=== PATIENT | female | born 1990 | race Caucasian/White ===

== ENCOUNTER → 2020-05-12 11:39 | Outpatient (CLI) | payer OTHER, MEDICAID, SELFPAY ==
[2020-05-12 14:47] LABS: Urine N gonorrhoeae NOT DETECTED
[2020-05-12 14:49] LABS: Urine Chlamydia DETECTED
== END ==
PROVIDERS: PCP Obstetrics & Gynecology; Visit Provider Obstetrics & Gynecology
DX: Z11.3 Encounter for screening for infections with a predominantly sexual mode of transmission (principal); Z3A.08 8 weeks gestation of pregnancy
CPT/HCPCS: 87491; 87591

== ENCOUNTER → 2020-06-09 09:04 | Outpatient (CLI) | payer OTHER, MEDICAID, SELFPAY ==
[2020-06-09 10:19] LABS: Add Manual Diff / Slide Review NO; Basophils Absolute Auto 0 /uL (0-100); Basophils Percent Auto 0.3 % (0-2); Eosinophils Absolute Auto 200 /uL (0-450); Eosinophils Percent Auto 1.8 % (2-4); Hematocrit 34.8 % (36-46); Hemoglobin 11.9 g/dL (12.0-16.0); Lymphocytes Absolute Auto 2000 /uL (1100-4500); Lymphocytes Percent Auto 18.8 % (25-40); Mean Corpuscular HGB Conc 34.2 % (30-36); Mean Corpuscular Hemoglobin 30.3 PG (26-34); Mean Corpuscular Volume 88.7 fL (80-100); Monocytes Absolute Auto 800 /uL (0-900); Neutrophils Absolute Auto 7500 /uL (1500-7000); Neutrophils Percent Auto 71.1 % (50-75); Platelet Count 244 X10^3/uL (150-400); Red Blood Cell Count 3.92 X10^6/uL (4.0-5.2); Red Cell Distribution Width 13.2 % (11.6-14.8); White Blood Cell Count 10.6 X10^3/uL (4.5-11.0)
[2020-06-09 11:37] LABS: Hepatitis B Surface Antigen NEGATIVE s/c (NEGATIVE); Rubella Antibody IgG 29.6 IU/mL (>15)
[2020-06-09 11:56] LABS: HIV 1 & 2 Ab/Ag 4th Gen Combo NEGATIVE (NEGATIVE); Hep C Virus Ab w/Reflex Quant NEGATIVE s/c (NEGATIVE)
[2020-06-10 04:36] LABS: RPR Screen Non Reactive (Non Reactive)
[2020-06-10 08:09] LABS: Varicella IgG Antibody 1510 index (Immune >165)
== END ==
PROVIDERS: PCP Obstetrics & Gynecology; Referring Provider Obstetrics & Gynecology; Visit Provider Obstetrics & Gynecology
DX: Z34.81 Encounter for supervision of other normal pregnancy, first trimester (principal)
CPT/HCPCS: 36415; 80055; 86787; 86803; 86850; 86900; 86901; 87389

== ENCOUNTER → 2020-08-04 08:16 | Outpatient (CLI) | payer OTHER, MEDICAID, SELFPAY ==
[2020-08-07 11:12] LABS: Chlamydia trachomatis Negative (Negative); Mycoplasma genitalium Negative (Negative); Neisseria gonorrhoeae Negative (Negative)
== END ==
PROVIDERS: PCP Nurse Practitioner Family; Visit Provider Obstetrics & Gynecology
DX: Z34.82 Encounter for supervision of other normal pregnancy, second trimester (principal); Z11.3 Encounter for screening for infections with a predominantly sexual mode of transmission; Z3A.20 20 weeks gestation of pregnancy
CPT/HCPCS: 87491; 87563; 87591; 87798

== ENCOUNTER → 2020-11-09 16:06 | Outpatient (ROUT) | payer OTHER, MEDICAID, SELFPAY ==
[2020-11-09 16:22] LABS: Appearance Urine UA CLOUDY; Bilirubin Urine UA NEGATIVE (NEGATIVE); Color Urine UA YELLOW; Glucose Urine UA NEGATIVE (Negative); Ketones Urine UA NEGATIVE (NEGATIVE); Leukocyte Esterase Urine UA 2+ (NEGATIVE); Nitrite Urine UA NEGATIVE (Negative); Occult Blood Urine UA 3+ (Negative); Protein Urine UA TRACE (Negative); Urobilinogen Urine UA 0.2 E.U./dL (0.2)
[2020-11-09 16:31] LABS: Amorphous Sediment Urine 1+; Bacteria Urine Few (2-10); Mucus Urine 1+ (Negative); RBC Urine 5-10/HPF (0-5/HPF); Squamous Epithelial Cell Urine 5-10 /HPF (0-5/HPF); WBC Urine 30-100/HPF (0-5/HPF)
== END ==
PROVIDERS: PCP Nurse Practitioner Family; Visit Provider Obstetrics & Gynecology
DX: Z34.81 Encounter for supervision of other normal pregnancy, first trimester (principal)
CPT/HCPCS: 81003; 81015; 87086

== ENCOUNTER → 2020-11-26 08:07 | Outpatient (CLI) | payer OTHER, MEDICAID, SELFPAY ==
[2020-11-27 10:01] LABS: Strep Grp B PCR NEG for Grp B Strep
== END ==
PROVIDERS: PCP Nurse Practitioner Family; Visit Provider Obstetrics & Gynecology
DX: Z34.83 Encounter for supervision of other normal pregnancy, third trimester (principal); Z3A.36 36 weeks gestation of pregnancy
CPT/HCPCS: 87653

== ENCOUNTER 2020-12-06 10:59 | Observation (INO) | payer OTHER, MEDICAID, SELFPAY ==
--- NOTE | 2020-12-06 11:34 | P.TNLD_ITS ---
Visit Information Visit Information Date of evaluation: 12/06/20 Primary OB Provider: Osiris Stevens Reason for Evaluation: Yes rule out labor Comments/Additional reasons for admission: This patient is a 30yo @38+1 presenting for evaluation for labor and rupture. Patient reports that since yesterday, she has had an increased amount of clear, mucousy discharge, though not soaking through her underpants or requiring a pad. She has had intermittent contractions, but is most bothered by her sciatica pain. She reports good movement, denies vaginal bleeding, and has increasing urinary frequency. She does report suprapubic cramping that she describes as pressure, different from contractions. Vital Signs Vital Signs: 113/71, HR 71, afebrile [facility] Medical History Adopted Anxiety Fracture of finger of left hand HPV (human papilloma virus) infection Surgical History Anesthesia History of appendectomy History of salpingoophorectomy [place] teeth extracted Social History marital status: unmarried,living together number of children: 1 household members: significant other lives independently: No caregiver/support person: No housing: apartment pets and animals: Yes (Dog - emotional support dog, recently adopted from penitentiary. ) education level: high school (finished [employer] through 11th grade.) occupational status: employed (Works at restaurant.) current occupational exposures/hazards: No special braulio needs: No Smoking Status: Never smoker second hand exposure: No alcohol intake: former (socially, 1-2x week) substance use type: marijuana (Rarely, for headaches, maybe once a montth, not since .) Type(s) of exercise: walking frequency: daily Review of Systems Constitutional Constitutional: Reports as per HPI Gastrointestinal Gastrointestinal: Reports as per HPI Genitourinary Genitourinary: Reports as per HPI Exam Const General: cooperative, healthy appearing and comfortable GI Palpation: soft and No tender External Female Exam: normal external appearance Manual OB Exam: dilated 2, effaced 50% and station high Presentation: vertex Estimated Weight (lbs): 7 Amniotic Fluid: no fluid and other (amnisure negative) Evaluation Evaluation Baseline heart rate: 135 Variability: Moderate (11-25) monitor accelerations: Present Monitor Decelerations: Absent Uterine Contraction Intensity: Mild Category of Tracing: Reactive Status: Category l Cervical dilation (cm): 2 Cervical effacement (%): 50 station: -3 Non-invasive Membranes Rupture Test: negative Comments: No fluid on garments or bedding, scant mucous on glove. Bedside KRISTIAN 10.1cm, MVP 3.3cm. Copious movement during exam. Diagnosis, Plan/Disposition Plan/Disposition Plan: This patient presents for evaluation for labor and rupture. Patient has mucously fluid with negative amnisure and normal KRISTIAN, no ongoing loss of fluid, dry pad and bedding, does not appear ruptured. Patient has not made cervical change since exam in clinic three days ago, has symptoms most consistent with UTI and will leave a UA. Plans to stay off mondamin overnight, precautions for return discussed. OB Disposition: home
[2020-12-06 12:57] LABS: RBC Urine None Seen (0-5/HPF)
[2020-12-06 12:59] LABS: Appearance Urine UA SL CLOUDY; Bilirubin Urine UA NEGATIVE (NEGATIVE); Color Urine UA YELLOW; Glucose Urine UA NEGATIVE (Negative); Ketones Urine UA NEGATIVE (NEGATIVE); Leukocyte Esterase Urine UA 1+ (NEGATIVE); Nitrite Urine UA NEGATIVE (Negative); Occult Blood Urine UA 1+ (Negative); Protein Urine UA NEGATIVE (Negative); Specific Gravity Urine UA 1.015 (1.000-1.035); Urobilinogen Urine UA 0.2 E.U./dL (0.2)
[2020-12-06 13:18] LABS: Bacteria Urine Moderate (10-30); Culture Indicated Urine Specimen Cultured; Squamous Epithelial Cell Urine 1-5 /HPF (0-5/HPF); WBC Urine 1-5/HPF (0-5/HPF); pH Urine UA 6.5 (4.5-8.0)
== END 2020-12-06 13:58 | disposition home or self-care (01) ==
PROVIDERS: Admitting Provider Obstetrics & Gynecology; PCP Nurse Practitioner Family; Referring Provider Obstetrics & Gynecology; Visit Provider Obstetrics & Gynecology
DX: O26.893 Other specified pregnancy related conditions, third trimester (principal); N89.8 Other specified noninflammatory disorders of vagina; M54.40 Lumbago with sciatica, unspecified side; Z3A.38 38 weeks gestation of pregnancy
CPT/HCPCS: 59025; 59050; 76815; 81001; 84112; 87086; G0378; G0379

== ENCOUNTER 2020-12-08 09:47 | Inpatient (IN) | payer OTHER, MEDICAID, SELFPAY ==
[2020-12-08 12:09] LABS: Add Manual Diff / Slide Review NO; Basophils Absolute Auto 0 /uL (0-100); Basophils Percent Auto 0.5 % (0-2); Eosinophils Absolute Auto 100 /uL (0-450); Eosinophils Percent Auto 1.1 % (2-4); Hematocrit 31.5 % (36-46); Hemoglobin 10.2 g/dL (12.0-16.0); Lymphocytes Absolute Auto 1900 /uL (1100-4500); Lymphocytes Percent Auto 20.9 % (25-40); Mean Corpuscular HGB Conc 32.3 % (30-36); Mean Corpuscular Hemoglobin 25.6 PG (26-34); Mean Corpuscular Volume 79.3 fL (80-100); Monocytes Absolute Auto 900 /uL (0-900); Monocytes Percent Auto 9.7 % (3-14); Neutrophils Absolute Auto 6000 /uL (1500-7000); Neutrophils Percent Auto 67.8 % (50-75); Platelet Count 194 X10^3/uL (150-400); Red Blood Cell Count 3.97 X10^6/uL (4.0-5.2); Red Cell Distribution Width 15.6 % (11.6-14.8); White Blood Cell Count 8.9 X10^3/uL (4.5-11.0)
--- NOTE | 2020-12-08 12:37 | PM.OBHP.1 ---
OB HPI Date/Time Date of admission: 12/08/20 Date Patient Seen: 12/08/20 Time Patient Seen: 09:15 History of Present Condition Chief complaint: NST : 2 Para: 1 Estimated Date of Delivery: 12/28/20 Estimated Gestational Age (weeks): 38 Narrative: Nazia Morgan is a 30 year old @38+3 presenting after SROM for clear fluid at 7:30 a.m.. The patient reports persistent trickle, though no massive leak. She denies vaginal bleeding, reports good movement, and reports rare contractions. An AmniSure was positive on admission. The patient has had an uncomplicated , has a history of uncomplicated vaginal delivery. The patient had a third-degree tear with her prior delivery in 2010, but no other obstetrical complications. She was treated for chlamydia at the beginning of the , is from the father the baby. She has no contributory medical, surgical, family, or other social history. Indications Indication for induction OB: other (SROM) History of Present care: good care Dating criteria: LMP confirmed by 1st trimester US Ultrasounds: normal 1st trimester US and abnormal US findings ( renal pyelectasis that resolved on follow-up, otherwise normal ultrasounds) Obstetrical complications: none Medical complications: none Preadmission Labs Blood type: O (+) positive -: Antibody screen: negative, GBS status: negative, HBsAG: negative, HIV: negative and RPR/VDLR: negative -: Chlamydia screen: detected (treated, negative JOVITA) and Gonorrhea screen: not detected -: Rubella: immune and Varicella: immune PAP: Normal Cell-free DNA: normal 1 hr GTT: 84 Narrative: Third-trimester labs performed through [employer], see activity log scans Prior (ies) History: G1: 02/22/11, 39+4, 7-8#, , F Evaluation Evaluation Baseline heart rate: 140 Variability: Moderate (11-25) monitor accelerations: Present Monitor Decelerations: Absent Contraction Frequency (minutes): 25 Uterine Contraction Intensity: Mild Category of Tracing: Reactive Status: Category l Cervical dilation (cm): 3 Cervical effacement (%): 50 station: -2 Laboratory results: Laboratory Tests 12/08/20 11:45 WBC 8.9 RBC 3.97 L Hgb 10.2 L Hct 31.5 L MCV 79.3 L MCH 25.6 L MCHC 32.3 RDW 15.6 H Plt Count 194 Neut % (Auto) 67.8 Lymph % (Auto) 20.9 L [place] % (Auto) 9.7 Eos % (Auto) 1.1 L Baso % (Auto) 0.5 Neut # (Auto) 6000 Lymph # (Auto) 1900 [place] # (Auto) 900 Eos # (Auto) 100 Baso # (Auto) 0 Non-invasive Membranes Rupture Test: positive [facility] Medical History Adopted Anxiety Fracture of finger of left hand HPV (human papilloma virus) infection Surgical History Anesthesia History of appendectomy History of salpingoophorectomy [place] teeth extracted Social History marital status: unmarried,living together number of children: 1 household members: significant other lives independently: No caregiver/support person: No housing: apartment pets and animals: Yes (Dog - emotional support dog, recently adopted from senior care. ) education level: high school (finished long term through 11th grade.) occupational status: employed (Works at restaurant.) current occupational exposures/hazards: No special braulio needs: No Smoking Status: Never smoker second hand exposure: No alcohol intake: former (socially, 1-2x week) substance use type: marijuana (Rarely, for headaches, maybe once a montth, not since .) Type(s) of exercise: walking frequency: daily Meds Home Medications and Allergies Home Medications Medication Instructions Recorded Confirmed Type prenat.vits,ophelia,pgq-pghg-uaups 1 tab PO DAILY 05/11/20 09/29/20 History ondansetron 4 mg disintegrating 4 mg PO Q8H PRN #20 tab 05/12/20 09/29/20 Rx tablet cefdinir 300 mg capsule 300 mg PO BID #14 cap 12/06/20 12/06/20 Rx Allergies Allergy/AdvReac Type Severity Reaction Status Date / Time hydromorphone Allergy Mild Rash Verified 12/08/20 10:28 milk AdvReac Powdered Verified 06/09/20 08:20 milk products: upset stomach, moderate diarrhea Review of Systems Constitutional Constitutional: Reports system reviewed and no additional complaints, except as documented Cardiovascular Cardiovascular: Reports system reviewed and no additional complaints, except as documented Respiratory Respiratory: Reports system reviewed and no additional complaints, except as documented Gastrointestinal Gastrointestinal: Reports as per HPI Genitourinary Genitourinary: Reports as per HPI Neurologic Neurologic: Reports system reviewed and no additional complaints, except as documented Exam Vital Signs (past 8 hours): 118/78, HR 80 Const General: cooperative, healthy appearing and comfortable GI Palpation: soft and No tender External Female Exam: normal external appearance Presentation: vertex Estimated Weight (lbs): 7 Amniotic Fluid: clear Objective Labs Result Diagrams: 12/08/20 11:45 Labs: Laboratory Results - last 24 hr 12/08/20 11:45 WBC 8.9 RBC 3.97 L Hgb 10.2 L Hct 31.5 L MCV 79.3 L MCH 25.6 L MCHC 32.3 RDW 15.6 H Plt Count 194 Neut % (Auto) 67.8 Lymph % (Auto) 20.9 L [place] % (Auto) 9.7 Eos % (Auto) 1.1 L Baso % (Auto) 0.5 Neut # (Auto) 6000 Lymph # (Auto) 1900 [place] # (Auto) 900 Eos # (Auto) 100 Baso # (Auto) 0 Assessment and Plan Assessment and Plan Assessment and Plan narrative: This patient is admitted with PROM, and does not appear to be in labor. The patient's GBS negative, and we discussed a few hours of expectant management, with Pitocin if she does not have more contractions. Category 1 tracing. Admit per usual protocol. Negative COVID test 2 days ago, did not require repeat. Anticipate vaginal delivery.
[2020-12-08] MEDS: LACTATED RINGERS 1,000 ML 100 ML IV (13:04)
[2020-12-08] MEDS: OXYTOCIN PREMIX 30 UNIT/500 ML PLAST..BAG IV (13:04)
--- NOTE | 2020-12-08 14:43 | PM.OBPNLAB ---
Date/Time Date Patient Seen: 12/08/20 Time Patient Seen: 14:43 Pelvic Exam Dilation (cm): 3 Effacement (%): 70 station: -2 Amniotic membrane status: Leaking (scant, clear) Comments: Attempted AROM of forebag. Patient poorly tolerant of cervical exams, unable to tolerate. Contractions Contractions on admission: irregular Pitocin rate (mU/min): 8 Contraction frequency (min): 4 Contraction intensity: Moderate Status status: Category l Heart Rate Baseline: 145 Monitor Accelerations: Present Monitor Decelerations: Absent Monitor Variability: Moderate Assessment and Plan Assessment: induction ongoing Plan: continuous present management Comments: Continue pitocin induction for PROM.
--- NOTE | 2020-12-08 17:19 | PM.OBPNLAB ---
Date/Time Date Patient Seen: 12/08/20 Time Patient Seen: 17:19 Pain Control Pain control: tolerating well Comments: symptomatic contractions q2-3 Pelvic Exam Dilation (cm): 4 Effacement (%): 70 station: -2 Amniotic membrane status: Leaking (scant, clear) Comments: AROM for copious clear fluid Contractions Pitocin rate (mU/min): 10 Contraction frequency (min): 3 Contraction pattern: Regular Contraction intensity: Moderate Status status: Category l Heart Rate Baseline: 140 Monitor Accelerations: Present Monitor Decelerations: Absent Monitor Variability: Moderate Assessment and Plan Assessment: induction ongoing Plan: continuous present management
--- NOTE | 2020-12-08 19:40 | PM.OBPRVD ---
Events: Labor Induction and Premature Rupture Membrane Labor & Delivery Delivery date: 12/08/20 Intrapartal Events: Acceleration and Deceleration Induction method: per pitocin protocol Delivery augmentation: rupture of membranes (forebag) Delivery monitor: external FHT and external uterine Route of delivery: L&D Laceration Description: Perineal - 2nd Degree Delivery repair: vicryl Estimated blood loss (mL): 200 Anesthesia Type: Epidural Complications: None Narrative: This patient presented after premature rupture membranes at home. The patient was found not to be in labor, and was induced with Pitocin. After rupture of a fore bag, the patient progressed rapidly, progressing from 4 cm to fully dilated in just under 2 hours. After a 5 minutes 2nd stage, the patient was delivered of a healthy baby girl, Apgars 8 and 9. A tight nuchal cord was clamped and cut at the perineum, and the shoulders delivered with ease. The placenta was delivered intact shortly thereafter, with a three-vessel cord. A very small second-degree perineal laceration was repaired with 3-0 Vicryl in the usual fashion. Patient received Pitocin per the usual hemorrhage prevention protocol. There were no other intrapartum or immediate complications. Baby 1: Infant gender: Female Presentation: vertex Position: Left Occiput Anterior Placenta delivery description: Spontaneous Cord Vessel Description: 3 Vessels score (1 min): 8 score (5 min): 9 Plan for aftercare: Routine care
[2020-12-08 20:16] VITALS: BP 109/62
[2020-12-09] MEDS: ACETAMINOPHEN 325 MG TABLET 650 MG PO ×3 (00:20→15:33)
[2020-12-09] MEDS: IBUPROFEN 600 MG TABLET PO ×3 (00:20→15:33)
--- NOTE | 2020-12-09 10:25 | P.DS_ITS ---
Discharge Providers Provider Date of admission: 12/08/20 09:47 Discharge Date: 12/09/20 Primary care physician: EFREN Luis Consults: 12/09/20 19:39 Consult to Housing Counselor Routine Comment: Discharge provider: Lula La MD Summary Hospital Course Date Patient Seen: 12/09/20 Time Patient Seen: 10:26 Diagnoses: Vaginal delivery with repair second-degree tear Hospital Course: Patient is a 30-year-old 2 now para 2 who arrived on Labor and delivery with spontaneous rupture membranes at 38 weeks. She had Pitocin augmentation of labor and underwent a spontaneous vaginal delivery with repair of a second- degree perineal tear. Patient is without difficulty. She denies headaches, scotomata, epigastric pain. She is urinating and ambulating well. She has minimal pain. Peripartum Data Infant Delivery Method: Natural Vaginal Laceration Description: Perineal - 2nd Degree Procedures: Pitocin augmentation of labor, spontaneous vaginal delivery, repair second-degree perineal tear complications: none [place] 1: Gender: Female Disposition of : home Discharge Diagnosis (1) Vaginal delivery: Status: Acute Status at Discharge Cognitive/behavioral status at discharge: oriented Functional status at discharge: independent ambulation Overall status at discharge: patient is progressing back to baseline Time Spent with Patient Time attestation: Total time spent providing and/or coordinating discharge services: Time spent: Less than 30 minutes Objective Labs Result Diagrams: 12/08/20 11:45 Labs: Laboratory Results - last 24 hr 12/08/20 12/08/20 11:45 11:45 WBC 8.9 RBC 3.97 L Hgb 10.2 L Hct 31.5 L MCV 79.3 L MCH 25.6 L MCHC 32.3 RDW 15.6 H Plt Count 194 Neut % (Auto) 67.8 Lymph % (Auto) 20.9 L [place] % (Auto) 9.7 Eos % (Auto) 1.1 L Baso % (Auto) 0.5 Neut # (Auto) 6000 Lymph # (Auto) 1900 [place] # (Auto) 900 Eos # (Auto) 100 Baso # (Auto) 0 Blood Type O Positive Antibody Screen Negative Exam Vital Signs (past 8 hours): Blood pressure 124/78, pulse of 82, temperature 98.7? Narrative Exam Narrative: Patient's abdomen is soft, nontender. Uterus is firm, at U, nontender. Repair is intact. Mild lochia. Extremities without edema and no ntender. Patient's blood type is O positive, she is rubella immune, she received Tdap in the 3rd trimester. Discharge Plan Discharge Plan Patient Disposition: Home Discharge orders & Medications Prescriptions: Continued ondansetron 4 mg tablet,disintegrating 4 mg PO Q8H PRN (Reason: nausea and vomiting) Qty: 20 RF: 0 prenat.vits,ophelia,oao-unht-trchj Tablet 1 tab PO DAILY RF: 0 Follow up/Referrals: Estrellita Forbes ARNP [Primary Care Provider] - [place],MD Osiris [Physician] - 6 Weeks ( visit) Diet/Activity/Treatments Diet: Regular Activity: Nothing in the vagina for 6 weeks. Avoid lifting more than 10 lb for 6 weeks. If you have increasing bleeding, fevers, chills, nausea, vomiting, headaches, visual changes, or any additional concerns, call or come to the emergency room. Skin/Wound/Dressing Care Report to your healthcare provider any signs of infection, such as:: chills, fever, night sweats, increased pain, unusual drainage and unusual redness Visit Report/Discharge Packet Instructions: DI for Labor and Delivery, Vaginal Discharge Data Primary Care Provider: Estrellita Forbes
[2020-12-09 10:49] VITALS: BP 124/78; PULSE 82; RESP 16; TEMP 37.1
[2020-12-09 12:22] VITALS: BP 124/78; PULSE 82; RESP 16; TEMP 37.1
[2020-12-09] MEDS: LANOLIN OINT 7 GM 1 APPLIC TOP (19:36)
== END 2020-12-09 16:20 | disposition home or self-care (01) | DRG 560 ==
PROVIDERS: Admitting Provider Obstetrics & Gynecology; PCP Nurse Practitioner Family; Referring Provider Obstetrics & Gynecology; Visit Provider Obstetrics & Gynecology
DX: O42.02 Full-term premature rupture of membranes, onset of labor within 24 hours of rupture (principal); Z3A.38 38 weeks gestation of pregnancy; Z37.0 Single live birth; O70.1 Second degree perineal laceration during delivery; O69.81X0 Labor and delivery complicated by cord around neck, without compression, not applicable or unspecified; Z20.822 Contact with and (suspected) exposure to COVID-19; O23.40 Unspecified infection of urinary tract in pregnancy, unspecified trimester; O99.344 Other mental disorders complicating childbirth; F41.8 Other specified anxiety disorders; O99.02 Anemia complicating childbirth; D64.9 Anemia, unspecified
CPT/HCPCS: 01967; 36415; 59050; 59409; 84112; 85025; 86850; 86900; 86901; G0379; J2590

== ENCOUNTER → 2021-06-26 08:57 | Outpatient (CLI) | payer OTHER, MEDICAID, SELFPAY ==
[2021-06-26 09:08] LABS: Specimen Label NATERA KIT
[2021-06-26 09:47] LABS: Add Manual Diff / Slide Review NO; Basophils Absolute Auto 0 /uL (0-100); Basophils Percent Auto 0.2 % (0-2); Eosinophils Absolute Auto 300 /uL (0-450); Hematocrit 34.6 % (36-46); Hemoglobin 11.8 g/dL (12.0-16.0); Lymphocytes Absolute Auto 1900 /uL (1100-4500); Lymphocytes Percent Auto 23.2 % (25-40); Mean Corpuscular HGB Conc 34.2 % (30-36); Mean Corpuscular Hemoglobin 28.6 PG (26-34); Mean Corpuscular Volume 83.6 fL (80-100); Monocytes Absolute Auto 700 /uL (0-900); Monocytes Percent Auto 8.1 % (3-14); Neutrophils Absolute Auto 5500 /uL (1500-7000); Neutrophils Percent Auto 65.5 % (50-75); Platelet Count 249 X10^3/uL (150-400); Red Blood Cell Count 4.14 X10^6/uL (4.0-5.2); Red Cell Distribution Width 14.6 % (11.6-14.8); White Blood Cell Count 8.4 X10^3/uL (4.5-11.0)
[2021-06-26 09:59] LABS: Appearance Urine UA CLEAR; Bilirubin Urine UA NEGATIVE (NEGATIVE); Color Urine UA YELLOW; Glucose Urine UA NEGATIVE (Negative); Ketones Urine UA NEGATIVE (NEGATIVE); Leukocyte Esterase Urine UA NEGATIVE (NEGATIVE); Nitrite Urine UA NEGATIVE (Negative); Occult Blood Urine UA NEGATIVE (Negative); Protein Urine UA NEGATIVE (Negative); Urobilinogen Urine UA 0.2 E.U./dL (0.2)
[2021-06-26 10:45] LABS: Hepatitis B Surface Antigen NEGATIVE s/c (NEGATIVE)
[2021-06-26 11:04] LABS: HIV 1 & 2 Ab/Ag 4th Gen Combo NEGATIVE (NEGATIVE); Hep C Virus Ab w/Reflex Quant NEGATIVE s/c (NEGATIVE)
[2021-06-27 12:07] LABS: Varicella IgG Antibody 1826 index (Immune >165)
[2021-06-29 10:09] LABS: RPR Screen Non Reactive (Non Reactive)
[2021-07-03 13:42] LABS: Rubella Antibody IgG 20.2 IU/mL (>15)
== END ==
PROVIDERS: PCP Nurse Practitioner Family; Referring Provider Family Medicine; Visit Provider Family Medicine
DX: Z34.81 Encounter for supervision of other normal pregnancy, first trimester (principal); Z3A.10 10 weeks gestation of pregnancy
CPT/HCPCS: 80055; 81003; 86787; 86803; 86850; 86900; 86901; 87086; 87147; 87389

== ENCOUNTER → 2021-08-23 08:03 | Outpatient (CLI) | payer OTHER, MEDICAID, SELFPAY ==
--- NOTE | 2021-08-23 08:05 | DI.US.S_ITS ---
PROCEDURE: US OB >= 14 WEEKS FETUS INDICATIONS: ANATOMY OUTSIDE/PRIOR DATING DATA: Last menstrual period (LMP): April 03, 2021. LMP-based estimated date of delivery (JASKARAN): January 08, 2022. First dating scan (date): August 23, 2020. Estimated date of delivery (JASKARAN) from first dating scan: January 08, 2022. The calculations are made using the ultrasound JASKARAN of January 08, 2022. TECHNIQUE: Real-time scanning was performed of the fetus, with image documentation and biometric measurements. COMPARISON: [facility], US, US OB >= 14 WEEKS FETUS, 12/03/2020, 15:24. FINDINGS: General: A single living intrauterine gestation is present. Presentation: Vertex. Placenta: Placental position is posterior , without previa. Amniotic fluid index: 14.6 cm, normal range is 5-24 cm. Single deepest vertical pocket is 4.1 cm. heart rate: 145 beats per minute. Maternal cervical canal: 4.4 cm long. Normal lower limit is 2.5 cm. biometrics: Biparietal diameter: 4.5 cm Head circumference: 17.2 cm Abdominal circumference: 14.9 cm Femur length: 3.6 cm Clinically estimated gestational age: 20 weeks, 2 days Composite gestational age from present scan: 20 weeks, 2 days Estimated weight and percentile: 366 g +/-45 g; 65th percentile Anatomic survey: Neuro: Ventricles are non-dilated at less than 10 mm. Cisterna magna is normal at 3-11 mm. Cerebellum is normal in size and morphology. Nuchal skin fold: Normal at less than 6 mm between 14-21 weeks gestational age. Face: Nose and lips, facial profile are normal. Spine: No evidence for spina bifida. Heart: 4-chambered heart is present, with normal ventricular outflow tracts. Diaphragm: Diaphragm is intact. Stomach: Left-sided stomach is present. Kidneys: No hydronephrosis. Normal is less than 5 mm in 2nd trimester, less than 7 mm in 3rd trimester. Cord: 3-vessel cord has orthotopic insertion. Bladder: Normal in size. Extremities: All 4 extremities identified. IMPRESSION: 1. Live single intrauterine gestation without significant abnormality. We strive to produce accurate, complete, and clear reports of imaging services. To assist us in improving patient care, this report was composed using standard report templates and voice recognition software. Therefore, it may contain abnormal punctuation, insertions and/or omissions. Occasional wrong-word or sound-alike substitutions may occur. Though we review the report and make efforts to correct it, we do recommend that the report be read carefully in proper context to recognize any text inaccuracies. Dictated by: Ras Alfaro M.D. on 08/23/2021 at 8:56 Approved by: Ras Alfaro M.D. on 08/23/2021 at 9:00
[2021-08-23 18:07] LABS: GTT (PREG) 1 Hour PP 50gm Dose 110 mg/dL (76-139)
[2021-08-26 20:38] LABS: AFP Value 82.7 ng/mL (.); Gest Age on Col Date 18.6 weeks (.); Gestational Age Ultrasound (.); Insulin Dep Diabetes No (.); OSBR Risk 1IN 737 (.); Results Report (.); Test Results *Screen Negative* (.)
== END ==
PROVIDERS: PCP Nurse Practitioner Family; Referring Provider Family Medicine; Visit Provider Family Medicine
DX: O36.60X0 Maternal care for excessive fetal growth, unspecified trimester, not applicable or unspecified (principal); Z3A.20 20 weeks gestation of pregnancy
CPT/HCPCS: 36415; 76811; 82105; 82950

== ENCOUNTER → 2021-10-18 10:05 | Outpatient (CLI) | payer OTHER, MEDICAID, SELFPAY ==
--- NOTE | 2021-10-18 10:07 | DI.US.S_ITS ---
PROCEDURE: US OB LIMITED INDICATIONS: EFW, KRISTIAN; CERVICAL LENGTH OUTSIDE/PRIOR DATING DATA: Last menstrual period (LMP): 04/03/2021. LMP-based estimated date of delivery (JASKARAN): 01/08/2022. First dating scan (date and location): 08/23/2021. Estimated date of delivery (JASKARAN) from first dating scan: 01/08/2022. TECHNIQUE: Real-time scanning was performed of the fetus, with image documentation and biometric measurements. COMPARISON: [facility], OB >= 14 WEEKS FETUS, 08/23/2021, 8:09. [facility], OB >= 14 WEEKS FETUS, 12/03/2020, 15:24. [facility], OB >= 14 WEEKS FETUS, 10/26/2020, 9:02. [facility], OB <= 14 WEEKS FETUS, 05/12/2020, 9:14. FINDINGS: General: A single living intrauterine gestation is present. Presentation: Vertex. Placenta: Placental position is posterior , without previa. Amniotic fluid index: 17.9 cm, normal range is 5-24 cm. heart rate: 147 beats per minute beats per minute. Maternal cervical canal: 4.4 cm long. Normal lower limit is 2.5 cm. biometrics: Biparietal diameter: 7.1 cm 28 weeks 4 days Head circumference: 26.2 cm 28 weeks 3 days Abdominal circumference: 25.8 cm 30 weeks 0 days Femur length: 5.8 cm 20 weeks 2 days Composite gestational age from initial scan: 28 weeks 2 days Composite gestational age from present scan: 29 weeks 2 days Estimated weight and percentile: 1459 g, 90th percentile Other: Not applicable. IMPRESSION: Single live intrauterine demonstrate appropriate interval growth. weight is at the 90th percentile. Recommend continued interval follow-up. We strive to produce accurate, complete, and clear reports of imaging services. To assist us in improving patient care, this report was composed using standard report templates and voice recognition software. Therefore, it may contain abnormal punctuation, insertions and/or omissions. Occasional wrong-word or sound-alike substitutions may occur. Though we review the report and make efforts to correct it, we do recommend that the report be read carefully in proper context to recognize any text inaccuracies. Dictated by: Judy Mac M.D. on 10/18/2021 at 16:47 Approved by: Judy Mac M.D. on 10/18/2021 at 16:49
== END ==
PROVIDERS: PCP Family Medicine; Referring Provider Family Medicine; Visit Provider Family Medicine
DX: Z36.86 Encounter for antenatal screening for cervical length (principal); Z3A.29 29 weeks gestation of pregnancy
CPT/HCPCS: 76815

== ENCOUNTER → 2021-11-08 11:50 | Outpatient (CLI) | payer OTHER, MEDICAID, SELFPAY ==
[2021-11-08 13:59] LABS: Add Manual Diff / Slide Review NO; Basophils Absolute Auto 0 /uL (0-100); Basophils Percent Auto 0.2 % (0-2); Eosinophils Absolute Auto 200 /uL (0-450); Eosinophils Percent Auto 1.9 % (2-4); Hematocrit 28.5 % (36-46); Hemoglobin 9.2 g/dL (12.0-16.0); Lymphocytes Absolute Auto 1900 /uL (1100-4500); Lymphocytes Percent Auto 16.9 % (25-40); Mean Corpuscular HGB Conc 32.1 % (30-36); Mean Corpuscular Hemoglobin 25.2 PG (26-34); Mean Corpuscular Volume 78.5 fL (80-100); Monocytes Absolute Auto 1000 /uL (0-900); Monocytes Percent Auto 8.6 % (3-14); Neutrophils Absolute Auto 8200 /uL (1500-7000); Neutrophils Percent Auto 72.4 % (50-75); Platelet Count 232 X10^3/uL (150-400); Red Blood Cell Count 3.63 X10^6/uL (4.0-5.2); Red Cell Distribution Width 14.5 % (11.6-14.8); White Blood Cell Count 11.3 X10^3/uL (4.5-11.0)
[2021-11-08 14:16] LABS: GTT (PREG) 1 Hour PP 50gm Dose 116 mg/dL (76-139)
== END ==
PROVIDERS: PCP Family Medicine; Referring Provider Family Medicine; Visit Provider Family Medicine
DX: Z3A.36 36 weeks gestation of pregnancy (principal)
CPT/HCPCS: 36415; 82950; 85025

== ENCOUNTER → 2021-11-15 09:37 | Outpatient (CLI) | payer OTHER, MEDICAID, SELFPAY ==
--- NOTE | 2021-11-15 09:40 | DI.US.S_ITS ---
PROCEDURE: US OB LIMITED INDICATIONS: growth scan OUTSIDE/PRIOR DATING DATA: Last menstrual period (LMP): 04/03/2021. LMP-based estimated date of delivery (JASKARAN): 01/08/2022. First dating scan (date and location): 08/23/2021. Estimated date of delivery (JASKARAN) from first dating scan: 01/08/2022. The calculations are made using the ultrasound JASKARAN of 01/08/2022. TECHNIQUE: Real-time scanning was performed of the fetus, with image documentation. Endovaginal scanning: Not performed. COMPARISON: [facility], OB LIMITED, 10/18/2021, 10:26. FINDINGS: A single living intrauterine gestation is present. Presentation: Cephalic. Placenta: Placental position is posterior, without previa. Amniotic fluid index: 142 cm, normal range is 5-24 cm. Single deepest vertical pocket is 3.8 cm. heart rate: 155 beats per minute. Maternal cervical canal: 4.8 cm long. Normal lower limit is 2.5 cm. No funneling. Biometric measurements: BPD: 8 cm, 32 weeks 1 day HC: 29.6 cm, 32 weeks 5 days AC: 29.3 cm, 33 weeks 2 days FL: 6.7 cm, 34 weeks 3 days Estimated gestational age from initial scan: 32 weeks 2 days Clinically estimated gestational age: 33 weeks 1 day Estimated weight 2195 g. 76 percentile. IMPRESSION: 1. Garcia living intrauterine at 33 weeks 1 day based on today's ultrasound. This is concordant with the prior ultrasound dating. Fetus is in the 76 percentile for weight. 2. Normal placenta and amniotic fluid. Dictated by: Gustavo Weller M.D. on 11/15/2021 at 11:18 Approved by: Gustavo Weller M.D. on 11/15/2021 at 11:23
== END ==
PROVIDERS: PCP Family Medicine; Referring Provider Family Medicine; Visit Provider Family Medicine
DX: O36.63X0 Maternal care for excessive fetal growth, third trimester, not applicable or unspecified (principal); Z3A.33 33 weeks gestation of pregnancy
CPT/HCPCS: 76815

== ENCOUNTER 2021-11-20 21:11 | Inpatient (IN) | payer OTHER, MEDICAID, SELFPAY ==
--- NOTE | 2021-11-20 21:03 | DI.US.S_ITS ---
PROCEDURE: US OB LIMITED INDICATIONS: US for cervical length r/o abruption OUTSIDE/PRIOR DATING DATA: Last menstrual period (LMP): 04/03/21. LMP-based estimated date of delivery (JASKARAN): 01/08/22. First dating scan (date and location): 08/23/21. Estimated date of delivery (JASKARAN) from first dating scan: 01/08/22. TECHNIQUE: Real-time scanning was performed of the fetus, with image documentation. Endovaginal scanning: Not needed COMPARISON: [facility], OB LIMITED, 11/15/2021, 10:07. [facility], OB LIMITED, 10/18/2021, 10:26. FINDINGS: A single living intrauterine gestation is present. Presentation: Vertex. Placenta: Placental position is posterior, without previa. Lower placental edge 0.5 to 3 cm from internal cervical os qualifies as low lying placenta. Marginal previa is defined as lower edge 0 to 0.5 mm from internal os. Amniotic fluid index: 12.9 cm, normal range is 5-24 cm. heart rate: 150 beats per minute. Maternal cervical canal: 3.2-3.8 cm long. Normal lower limit is 2.5 cm. IMPRESSION: Single living intrauterine gestation without evidence of placental abruption. Normal amniotic fluid volume. The delivery date is projected to be centered on 01/08/22. Dictated by: Cristóbal Escamilla M.D. on 11/20/2021 at 22:03 Approved by: Cristóbal Escamilla M.D. on 11/20/2021 at 22:06
[2021-11-20 21:38] LABS: Appearance Urine UA SL CLOUDY; Bilirubin Urine UA NEGATIVE (NEGATIVE); Color Urine UA YELLOW; Glucose Urine UA 2+ g/dL (Negative); Ketones Urine UA 1+ (NEGATIVE); Leukocyte Esterase Urine UA NEGATIVE (NEGATIVE); Nitrite Urine UA NEGATIVE (Negative); Occult Blood Urine UA 3+ (Negative); Protein Urine UA TRACE (Negative); Specific Gravity Urine UA 1.015 (1.000-1.035); Urobilinogen Urine UA 0.2 E.U./dL (0.2)
[2021-11-20 21:43] LABS: Bacteria Urine Many (>30); RBC Urine 1-5/HPF (0-5/HPF); Squamous Epithelial Cell Urine >30 /HPF (0-5/HPF); WBC Urine 1-5/HPF (0-5/HPF); pH Urine UA 6.5 (4.5-8.0)
[2021-11-20 21:44] LABS: Culture Indicated Urine Cult Not Indicated
[2021-11-20 22:49] LABS: Appearance Urine UA CLEAR; Bilirubin Urine UA NEGATIVE (NEGATIVE); Color Urine UA YELLOW; Glucose Urine UA 1+ g/dL (Negative); Ketones Urine UA NEGATIVE (NEGATIVE); Leukocyte Esterase Urine UA NEGATIVE (NEGATIVE); Nitrite Urine UA NEGATIVE (Negative); Occult Blood Urine UA TRACE-LYSED (Negative); Protein Urine UA TRACE (Negative); Specific Gravity Urine UA 1.015 (1.000-1.035); Urobilinogen Urine UA 0.2 E.U./dL (0.2)
[2021-11-20 22:53] LABS: Bacteria Urine None Seen; Culture Indicated Urine Cult Not Indicated; RBC Urine 0-1/HPF (0-5/HPF); Squamous Epithelial Cell Urine 0-1 /HPF (0-5/HPF); WBC Urine None Seen (0-5/HPF)
[2021-11-20 23:38] VITALS: BP 109/65
[2021-11-21] MEDS: LACTATED RINGERS 1,000 ML 1000 ML IV
[2021-11-21] MEDS: NIFEdipine 10 MG CAPSULE PO ×3 (00:28→01:27)
[2021-11-21] MEDS: NIFEdipine 30 MG TAB ER PO (01:51)
[2021-11-21] MEDS: ACETAMINOPHEN 325 MG TABLET 650 MG PO (04:48)
[2021-11-21] MEDS: ONDANSETRON 4 MG/2 ML INJ IV (05:48)
[2021-11-21] MEDS: METOCLOPRAMIDE 10 MG/2 ML INJ IV (08:11)
--- NOTE | 2021-11-21 09:07 | PM.OBHP.1 ---
OB HPI Date/Time Date of admission: 11/20/21 Date Patient Seen: 11/21/21 Time Patient Seen: 09:08 History of Present Condition Chief complaint: Vaginal Bleeding, 32 weeks : 3 Para: 2 Estimated Date of Delivery: 01/20/22 Estimated Gestational Age (weeks): 31+3 Narrative: Nazia Ramirez is a 31 [address] of Dr. 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 The fragment blood was proceeded immediately by a single sharp pain in the uterine fundus. Patient was seen at [facility] ED on [facility] where a sterile vaginal exam was performed showing the cervix to be closed prior to the patient's travel by [facility] to [place] where she was then placed under observation on the [facility]. Evaluation showed normal urinalysis, category 1 FHR tracing with significant uterine irrtability, and bedside OB ultrasound which showed: PROCEDURE:? US OB LIMITED ? INDICATIONS:? US for cervical length r/o abruption ? OUTSIDE/PRIOR DATING DATA:? Last menstrual period (LMP):? 04/03/21.? LMP-based estimated date of delivery (JASKARAN):? 01/08/22.? First dating scan (date and location):? 08/23/21.? Estimated date of delivery (JASKARAN) from first dating scan:? 01/08/22. ? TECHNIQUE: Real-time scanning was performed of the fetus, with image documentation.? Endovaginal scanning:? Not needed ? COMPARISON:? [facility], OB LIMITED, 11/15/2021, 10:07.? [facility], OB LIMITED, 10/18/2021, 10:26. ? FINDINGS:? A single living intrauterine gestation is present.? Presentation:? Vertex.? Placenta:? Placental position is posterior, without previa.? Lower placental edge 0.5 to 3 cm from internal cervical os qualifies as low lying placenta.? Marginal previa is defined as lower edge 0 to 0.5 mm from internal os.? Amniotic fluid index:? 12.9 cm, normal range is 5-24 cm. heart rate:? 150 beats per minute.? Maternal cervical canal:? 3.2-3.8 cm long.? Normal lower limit is 2.5 cm.? ? ? IMPRESSION:? Single living intrauterine gestation without evidence of placental abruption.? Normal amniotic fluid volume.? The delivery date is projected to be centered on 01/08/22.? Review of the patient's record shows that her cervical length on 11/15/2021 was 4.8 cm. and discussion with the public address technician will perform the study stated that there was a small amount of fluid in the endocervical canal which is not noted on the formal ultrasound report. Also noted on the patient's initial assessment was uterine irritability for which the patient received a series of 3 oral doses of nifedipine 10 mg and a single 30 mg ER nifedipine dose. Although the uterine irritability has subsided markedly and the patient is not feeling any contractions, her abdominal toco tracing does continue to show some uterine irritability. Her bleeding is minimal but she is still occasionally passing small amounts of bright red blood. History of Present care: good care Dating criteria: LMP confirmed by 1st trimester US Ultrasounds: normal 1st trimester US and normal mid trimester US Obstetrical complications: none Medical complications: none Preadmission Labs Blood type: O (+) positive -: Antibody screen: negative, HBsAG: negative, HIV: negative and RPR/VDLR: negative -: Rubella: immune and Varicella: immune HCT: 28.5 HCAB: negative Prior (ies) History: Term x 2 @ [facility] Evaluation Evaluation Baseline heart rate: 130 Variability: Moderate (11-25) monitor accelerations: Present Monitor Decelerations: Absent Contraction Frequency (minutes): 3 Uterine Contraction Intensity: Mild Category of Tracing: Reactive Status: Category l PFSH Medical History (Updated 06/11/21 @ 16:34 by Anatoly Chandler LPN) Adopted Anxiety (~2019) Back pain (~11/2020) Fracture of finger of left hand HPV (human papilloma virus) infection (~2018) Migraine (~2018) Surgical History (Updated 05/27/21 @ 10:28 by Irasema Brannon RN) Anesthesia History of appendectomy (~2002) History of salpingoophorectomy (~2002) [place] teeth extracted (~2010) Social History marital status: unmarried,living together number of children: 2 household members: significant other (New partner this . ) lives independently: Yes caregiver/support person: No housing: apartment pets and animals: Yes (2 Dogs - 1 emotional support dog, adopted from assisted. 1 puppy.) education level: high school (finished [employer] through 11th grade.) occupational status: employed ([employer]; 2 days/week.) current occupational exposures/hazards: No special braulio needs: No seatbelt use: always do you feel safe at home: Yes Smoking Status: Never smoker second hand exposure: No alcohol intake: former (Pre-: socially, 1-2x month.) substance use type: does not use during the past year weight has: decreased > 10 lbs (Had a baby 11/2020. ) well-balanced diet: about half the time (All day nausea currently, hard to eat, then overeats when she can eat. ) daily servings fruits/ve-4 caffeine: Yes (1 12 oz coffee twice weekly. Guidelines reviewed. ) Type(s) of exercise: walking frequency: daily duration: 30-45 minutes/day Meds Home Medications and Allergies Allergies Allergy/AdvReac Type Severity Reaction Status Date / Time hydromorphone Allergy Mild Rash Verified 11/20/21 23:36 milk AdvReac Mild Powdered Verified 11/20/21 23:36 milk products: upset stomach, moderate diarrhea. Review of Systems Review of Systems Narrative: Problem-specific ROS positives included in HPI OB Exam HENMT Head: normal to inspection, normocephalic and atraumatic Eyes General: appearance normal, both eyes and all related structures Resp Effort & Inspection: normal respiratory effort and able to speak in complete sentences Auscultation: clear to auscultation bilaterally Cardio Rate: regular rate Rhythm: regular rhythm Heart Sounds: S1 normal, S2 normal and no murmurs Uterus Location (Fundal Height): 32 Presentation: vertex Estimated Weight (lbs): 4 Objective Imaging OB ULTRASOUND; FOLLOW UP: Radiologist's impression: Patient: Nazia Ramirez MR#: [id number] : 1990 Acct:[id number] Age/Sex: 31 / F Date of Service: 11/21/21 Loc: LABOR [id number] Accession Number: [id number] ?? Procedure: US OB follow up Ordering Provider: Braden aSntacruz MD PROCEDURE:? US OB FOLLOW UP ? INDICATIONS:? 3rd trimester bleeding; R/O premature labor ? TECHNIQUE: Real-time scanning was performed of the fetus, with image documentation.? Endovaginal scanning:? Not performed ? COMPARISON:? None. ? FINDINGS:? A single living intrauterine gestation is present.? Presentation:? Cephalic Placenta:? Placental position is posterior, without previa.? ? Amniotic fluid index:? 12.2 cm, normal range is 5-24 cm. Single deepest vertical pocket is 4.5 cm.? ? heart rate:? 144 beats per minute.? Maternal cervical canal:? 3.3 cm cm long.? ? IMPRESSION:? Single live intrauterine gestation with normal KRISTIAN.? Maternal cervical length is 3.3 cm, similar to exam performed 11/20/2021.? Labs Result Diagrams: 11/21/21 09:56 11/21/21 09:56 Labs: Laboratory Results - last 24 hr 11/20/21 11/20/21 21:00 22:30 Urine Color Yellow Yellow Urine Appearance Sl cloudy Clear Urine pH 6.5 7.0 Ur Specific [place] 1.015 1.015 Urine Protein Trace H Trace H Urine Glucose (UA) 2+ H 1+ H Urine Ketones 1+ H Negative Urine Occult Blood 3+ H Trace-lysed Urine Nitrate Negative Negative Urine Bilirubin Negative Negative Urine Urobilinogen 0.2 0.2 Ur Leukocyte Esterase Negative Negative Urine RBC 1-5/hpf 0-1/hpf Urine WBC 1-5/hpf None seen Ur Squamous Epith Cells >30 /hpf H D 0-1 /hpf D Urine Bacteria Many (>30) H None seen Ur Culture Indicated? Cult not indicated Cult not indicated Assessment and Plan Assessment and Plan Assessment and Plan narrative: ASSESSMENT 1. Intrauterine gestation, Garcia, 30 1+3 weeks gestational age 2. Third trimester bleeding; small lucency between membranes and internal cervical os c/w residual clot/blood, non-enlarging, Rh+ status 3. Uterine irritability, rule out labor; 1.5 cm cervical shortening noted on admission, unchanged overnight 4. Low-lying placenta, posterior, no ultrasound evidence of abruption 5. Chronic anemia, (hypochromic microcytic) 6. History of GBS w/ previous 7. History of chlamydia PLAN 1. See orders 2. Bedrest w/ BRP w/ close MF observation 3. Case reviewed with [facility] MFM via [employer] MD 4. IV MgSO4 due to intolerance to Nifedipine (severe H/A), w/ persistent irritability and objective evidence of cervical shortening (stable) - If uterine irritability and bleeding resolve w/ MgSO4, continued observation on [facility] - If irritability doesn't resolve with MgSO4 and/or bleeding persists/increases, transfer patient to [facility] for further evaluation and care 5. Betamethasone 12 mg now and repeat in 24 hrs. Time Spent with Patient Total time spent with greater than 50% in coordination of care (as documented) at patient's floor/unit and/or counseling patient:: 25 - 35 minutes Results Labs and Meds Result diagrams: 11/21/21 09:56 11/21/21 09:56 Lab results: Cardiac Enzymes 11/21/21 Range/Units 09:56 AST 26 (14-36) IU/L Coagulation 11/21/21 Range/Units 09:56 PT 11.7 (10.1-12.7) SECONDS APTT 27 (26.4-36.2) SECONDS CBC 11/21/21 Range/Units 09:56 WBC 11.5 H (4.5-11.0) X10^3/uL RBC 3.55 L (4.0-5.2) X10^6/uL Hgb 8.8 L (12.0-16.0) g/dL Hct 26.9 L (36-46) % Plt Count 224 (150-400) X10^3/uL Neut # (Auto) 8300 H (4497-2663) /uL Lymph # (Auto) 1800 (3815-4735) /uL Hand # (Auto) 1200 H (0-900) /uL Eos # (Auto) 200 (0-450) /uL Baso # (Auto) 0 (0-100) /uL Comprehensive Metabolic Panel 11/21/21 Range/Units 09:56 Sodium 134 L (137-145) mmol/L Potassium 3.6 (3.4-5.1) mmol/L Chloride 106 (98-107) mmol/L Carbon Dioxide 22 (22-32) mmol/L BUN 5 L (7-17) mg/dL Creatinine 0.45 L (0.52-1.04) mg/dL Glucose 96 (70-100) mg/dL Calcium 8.4 (8.4-10.2) mg/dL AST 26 (14-36) IU/L ALT 14 (<35) IU/L Alkaline Phosphatase 132 H (38-126) U/L Total Protein 7.2 (6.3-8.2) g/dL Albumin 3.6 (3.5-5.0) g/dL Intake and Output 11/20/21 11/21/21 11/21/21 23:59 07:59 15:59 Other: Weight 203 lb
--- NOTE | 2021-11-21 09:34 | DI.US.S_ITS ---
PROCEDURE: US OB FOLLOW UP INDICATIONS: 3rd trimester bleeding; R/O premature labor TECHNIQUE: Real-time scanning was performed of the fetus, with image documentation. Endovaginal scanning: Not performed COMPARISON: None. FINDINGS: A single living intrauterine gestation is present. Presentation: Cephalic Placenta: Placental position is posterior, without previa. Amniotic fluid index: 12.2 cm, normal range is 5-24 cm. Single deepest vertical pocket is 4.5 cm. heart rate: 144 beats per minute. Maternal cervical canal: 3.3 cm cm long. IMPRESSION: Single live intrauterine gestation with normal KRISTIAN. Maternal cervical length is 3.3 cm, similar to exam performed 11/20/2021. Dictated by: Teo Brown M.D. on 11/21/2021 at 10:38 Approved by: Teo Brown M.D. on 11/21/2021 at 10:39
[2021-11-21 10:03] LABS: Add Manual Diff / Slide Review NO; Basophils Absolute Auto 0 /uL (0-100); Basophils Percent Auto 0.4 % (0-2); Eosinophils Absolute Auto 200 /uL (0-450); Eosinophils Percent Auto 1.4 % (2-4); Hematocrit 26.9 % (36-46); Hemoglobin 8.8 g/dL (12.0-16.0); Lymphocytes Absolute Auto 1800 /uL (1100-4500); Lymphocytes Percent Auto 15.4 % (25-40); Mean Corpuscular HGB Conc 32.8 % (30-36); Mean Corpuscular Hemoglobin 24.8 PG (26-34); Mean Corpuscular Volume 75.6 fL (80-100); Monocytes Absolute Auto 1200 /uL (0-900); Monocytes Percent Auto 10.2 % (3-14); Neutrophils Absolute Auto 8300 /uL (1500-7000); Neutrophils Percent Auto 72.6 % (50-75); Platelet Count 224 X10^3/uL (150-400); Red Blood Cell Count 3.55 X10^6/uL (4.0-5.2); Red Cell Distribution Width 14.9 % (11.6-14.8); White Blood Cell Count 11.5 X10^3/uL (4.5-11.0)
[2021-11-21 10:15] LABS: Prothrombin Time 11.7 SECONDS (10.1-12.7)
[2021-11-21 10:17] LABS: Fibrinogen 534 mg/dL (211-428)
[2021-11-21 10:18] LABS: PTT Partial Thromboplastin Tim 27 SECONDS (26.4-36.2)
[2021-11-21 10:19] LABS: D Dimer 430 ng/mL (<230)
[2021-11-21 10:20] LABS: Alanine Aminotransferase 14 IU/L (<35); Albumin 3.6 g/dL (3.5-5.0); Alkaline Phosphatase 132 U/L (38-126); Aspartate Aminotransferase 26 IU/L (14-36); BUN Creatinine Ratio 11.1 (6-22); Bilirubin Total 0.3 mg/dL (0.2-1.3); Blood Urea Nitrogen 5 mg/dL (7-17); Calcium 8.4 mg/dL (8.4-10.2); Carbon Dioxide 22 mmol/L (22-32); Chloride 106 mmol/L (98-107); Estimated Glomerular Filt Rate > 60.0 mL/min (>60); Globulin 3.6 g/dL (1.7-4.1); Glucose 96 mg/dL (70-100); HEMOLYSIS < 15 (0-50); Potassium 3.6 mmol/L (3.4-5.1); Sodium 134 mmol/L (137-145); Total Protein 7.2 g/dL (6.3-8.2)
[2021-11-21] MEDS: IRON SUCROSE 200 MG in SODIUM CHLORIDE 0.9% 100 ML 220 ML IV (10:56)
[2021-11-21] MEDS: MAGNESIUM SULFATE 4 GM/100 ML PIGGYBACK IV (11:43)
[2021-11-21] MEDS: DOCUSATE 100 MG CAPSULE 200 MG PO (11:44)
[2021-11-21] MEDS: BETAMETHASONE 30 MG/5 ML MDV 12 MG IM (11:44)
[2021-11-21 12:18] LABS: Urine N gonorrhoeae NOT DETECTED
[2021-11-21 12:20] LABS: Urine Chlamydia NOT DETECTED
[2021-11-21] MEDS: MAGNESIUM SULFATE 20 GM/500 ML IV.SOLN IV (13:01)
--- NOTE | 2021-11-21 13:57 | PM.PN.1 ---
Subjective Subjective Date Patient Seen: 11/21/21 Time Patient Seen: 13:37 Interval history: Following initiation of intravenous magnesium sulfate with a 4 g bolus followed by 2 grams/hour infusion, patient's contractions have not abated and in fact have actually become more uncomfortable to the patient. Her bleeding is stable (minimal) and the 's tracing remains category 1. Exam Narrative Exam Narrative: Exam unchanged from previous evaluation. Objective Labs Result Diagrams: 11/21/21 09:56 11/21/21 09:56 Labs: Laboratory Results - last 24 hr 11/20/21 11/20/21 11/21/21 21:00 22:30 09:56 WBC RBC Hgb Hct MCV MCH MCHC RDW Plt Count Neut % (Auto) Lymph % (Auto) [place] % (Auto) Eos % (Auto) Baso % (Auto) Neut # (Auto) Lymph # (Auto) [place] # (Auto) Eos # (Auto) Baso # (Auto) PT 11.7 INR 1.0 APTT 27 Fibrinogen 534 H D-Dimer Sodium Potassium Chloride Carbon Dioxide BUN Creatinine Estimated GFR BUN/Creatinine Ratio Glucose Calcium Total Bilirubin AST ALT Alkaline Phosphatase Total Protein Albumin Globulin Albumin/Globulin Ratio Urine Color Yellow Yellow Urine Appearance Sl cloudy Clear Urine pH 6.5 7.0 Ur Specific [place] 1.015 1.015 Urine Protein Trace H Trace H Urine Glucose (UA) 2+ H 1+ H Urine Ketones 1+ H Negative Urine Occult Blood 3+ H Trace-lysed Urine Nitrate Negative Negative Urine Bilirubin Negative Negative Urine Urobilinogen 0.2 0.2 Ur Leukocyte Esterase Negative Negative Urine RBC 1-5/hpf 0-1/hpf Urine WBC 1-5/hpf None seen Ur Squamous Epith Cells >30 /hpf H D 0-1 /hpf D Urine Bacteria Many (>30) H None seen Ur Culture Indicated? Cult not indicated Cult not indicated Ur Chlamydia DNA (PCR) N gonorrhoeae DNA (PCR) 11/21/21 11/21/21 11/21/21 09:56 09:56 09:56 WBC 11.5 H RBC 3.55 L Hgb 8.8 L Hct 26.9 L MCV 75.6 L MCH 24.8 L MCHC 32.8 RDW 14.9 H Plt Count 224 Neut % (Auto) 72.6 Lymph % (Auto) 15.4 L [place] % (Auto) 10.2 Eos % (Auto) 1.4 L Baso % (Auto) 0.4 Neut # (Auto) 8300 H Lymph # (Auto) 1800 [place] # (Auto) 1200 H Eos # (Auto) 200 Baso # (Auto) 0 PT INR APTT Fibrinogen D-Dimer 430 H Sodium 134 L Potassium 3.6 Chloride 106 Carbon Dioxide 22 BUN 5 L Creatinine 0.45 L Estimated GFR > 60.0 BUN/Creatinine Ratio 11.1 Glucose 96 Calcium 8.4 Total Bilirubin 0.3 AST 26 ALT 14 Alkaline Phosphatase 132 H Total Protein 7.2 Albumin 3.6 Globulin 3.6 Albumin/Globulin Ratio 1.0 Urine Color Urine Appearance Urine pH Ur Specific [place] Urine Protein Urine Glucose (UA) Urine Ketones Urine Occult Blood Urine Nitrate Urine Bilirubin Urine Urobilinogen Ur Leukocyte Esterase Urine RBC Urine WBC Ur Squamous Epith Cells Urine Bacteria Ur Culture Indicated? Ur Chlamydia DNA (PCR) N gonorrhoeae DNA (PCR) 11/21/21 10:30 WBC RBC Hgb Hct MCV MCH MCHC RDW Plt Count Neut % (Auto) Lymph % (Auto) [place] % (Auto) Eos % (Auto) Baso % (Auto) Neut # (Auto) Lymph # (Auto) [place] # (Auto) Eos # (Auto) Baso # (Auto) PT INR APTT Fibrinogen D-Dimer Sodium Potassium Chloride Carbon Dioxide BUN Creatinine Estimated GFR BUN/Creatinine Ratio Glucose Calcium Total Bilirubin AST ALT Alkaline Phosphatase Total Protein Albumin Globulin Albumin/Globulin Ratio Urine Color Urine Appearance Urine pH Ur Specific [place] Urine Protein Urine Glucose (UA) Urine Ketones Urine Occult Blood Urine Nitrate Urine Bilirubin Urine Urobilinogen Ur Leukocyte Esterase Urine RBC Urine WBC Ur Squamous Epith Cells Urine Bacteria Ur Culture Indicated? Ur Chlamydia DNA (PCR) Not detected N gonorrhoeae DNA (PCR) Not detected [facility] Medical History (Updated 11/21/21 @ 14:05 by Braden Santacruz MD) Adopted Anxiety (~2019) Back pain (~11/2020) Fracture of finger of left hand HPV (human papilloma virus) infection (~2018) Migraine (~2018) Surgical History (Updated 05/27/21 @ 10:28 by Irasema Brannon RN) Anesthesia History of appendectomy (~2002) History of salpingoophorectomy (~2002) [place] teeth extracted (~2010) Social History marital status: unmarried,living together number of children: 2 household members: significant other (New partner this . ) lives independently: Yes caregiver/support person: No housing: apartment pets and animals: Yes (2 Dogs - 1 emotional support dog, adopted [facility]. 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 ) well-balanced diet: about half the time (All day nausea currently, hard to eat, then overeats when she can eat. ) daily servings fruits/ve-4 caffeine: Yes (1 12 oz coffee twice weekly. Guidelines reviewed. ) Type(s) of exercise: walking frequency: daily duration: 30-45 minutes/day Assessment & Plan Assessment and plan (1) Third trimester bleeding, antepartum: Status: Acute (2) Premature uterine contractions: Status: Acute (3) : Qualifiers: Weeks of gestation: 31 weeks Qualified Code(s): Z3A.31 - 31 weeks gestation of Status: Acute Plan Although patient's bleeding is still minimal, her uterine irritability/contractions have persisted despite initiation of magnesium sulfate in standard doses (4 gm bolus, 2 gm infusion). Case previously discussed with Dr. Neelam Steele at [facility] and with her as the accepting physician, will initiate transfer to the [facility] L&D unit for further evaluation and possible delivery as indicated. Time Spent With Patient Time with patient: 30 to 49 minutes with 50% spent counseling/coordinating care Critical Care time: I spent a total of 45 minutes of critical care time on this patient's care today; this time is exclusive of procedural time.
[2021-11-21 16:26] LABS: COVID19 -Nasal RAPID Negative (Negative)
[2021-11-23 12:10] LABS: Strep Grp B PCR NEG for Grp B Strep
== END 2021-11-21 15:45 | disposition short-term general hospital (02) | DRG 566 ==
PROVIDERS: Admitting Provider Obstetrics & Gynecology; PCP Family Medicine; Referring Provider Obstetrics & Gynecology; Visit Provider Obstetrics & Gynecology
DX: O46.93 Antepartum hemorrhage, unspecified, third trimester (principal); Z3A.31 31 weeks gestation of pregnancy; O47.03 False labor before 37 completed weeks of gestation, third trimester; Z20.822 Contact with and (suspected) exposure to COVID-19
CPT/HCPCS: 36415; 59025; 59050; 76815; 76816; 76817; 80053; 81001; 85025; 85379; 85384; 85610; 85730; 87491; 87591; 87635; 87653; 96360; 96372; 99233; C9803; G0379; J0702; J1756; J2405; J2765; J3475

== ENCOUNTER → 2021-12-17 08:22 | Outpatient (CLI) | payer OTHER, MEDICAID, SELFPAY ==
[2021-12-17 09:57] LABS: Appearance Urine UA CLEAR; Bilirubin Urine UA NEGATIVE (NEGATIVE); Color Urine UA YELLOW; Glucose Urine UA NEGATIVE (Negative); Ketones Urine UA NEGATIVE (NEGATIVE); Leukocyte Esterase Urine UA 1+ (NEGATIVE); Nitrite Urine UA NEGATIVE (Negative); Occult Blood Urine UA 2+ (Negative); Protein Urine UA NEGATIVE (Negative); Urobilinogen Urine UA 0.2 E.U./dL (0.2)
[2021-12-17 10:05] LABS: Bacteria Urine Moderate (10-30); Culture Indicated Urine Specimen Cultured; Mucus Urine 1+ (Negative); RBC Urine 1-5/HPF (0-5/HPF); Transitional Epi Cells Urine 0-1/HPF (0-5/HPF); WBC Urine 10-30/HPF (0-5/HPF)
== END ==
PROVIDERS: PCP Family Medicine; Referring Provider Family Medicine; Visit Provider Family Medicine
DX: N39.0 Urinary tract infection, site not specified (principal)
CPT/HCPCS: 81001; 87086

== ENCOUNTER → 2022-10-17 16:19 | Outpatient (CLI) | payer OTHER, MEDICAID, SELFPAY ==
[2022-10-17 16:59] LABS: Pregnancy Test Urine Negative (Negative)
== END ==
PROVIDERS: PCP Family Medicine; Visit Provider Physician Assistant
DX: R30.0 Dysuria (principal)
CPT/HCPCS: 81002; 81025; 87077; 87086; 87147; 87210

== ENCOUNTER → 2023-03-08 14:31 | Outpatient (CLI) | payer OTHER, MEDICAID, SELFPAY ==
[2023-03-08 16:45] LABS: Add Manual Diff / Slide Review NO; Basophils Absolute Auto 100 /uL (0-100); Basophils Percent Auto 0.6 % (0-2); Eosinophils Absolute Auto 300 /uL (0-450); Eosinophils Percent Auto 3.1 % (2-4); Hematocrit 32.1 % (36-46); Hemoglobin 10.7 g/dL (12.0-16.0); Lymphocytes Absolute Auto 2300 /uL (1100-4500); Lymphocytes Percent Auto 28.3 % (25-40); Mean Corpuscular HGB Conc 33.5 % (30-36); Mean Corpuscular Hemoglobin 26.9 PG (26-34); Mean Corpuscular Volume 80.3 fL (80-100); Monocytes Absolute Auto 800 /uL (0-900); Monocytes Percent Auto 9.5 % (3-14); Neutrophils Absolute Auto 4700 /uL (1500-7000); Neutrophils Percent Auto 58.5 % (50-75); Platelet Count 322 X10^3/uL (150-400); Red Blood Cell Count 3.99 X10^6/uL (4.0-5.2); Red Cell Distribution Width 13.4 % (11.6-14.8); White Blood Cell Count 8.1 X10^3/uL (4.5-11.0)
[2023-03-08 17:04] LABS: HEMOLYSIS < 15 (0-50); Iron 25 ug/dL (37-170)
[2023-03-08 17:20] LABS: Percent Iron Saturation 5 % (15-50); Total Iron Binding Capacity 500 ug/dL (265-497); Transferrin 382 mg/dL (206-381)
[2023-03-08 17:43] LABS: Ferritin 6 ng/mL (6-137)
== END ==
PROVIDERS: PCP Family Medicine; Referring Provider Family Medicine; Visit Provider Family Medicine
DX: N92.0 Excessive and frequent menstruation with regular cycle (principal)
CPT/HCPCS: 36415; 82728; 83540; 83550; 85025

== ENCOUNTER → 2023-03-29 10:12 | Outpatient (CLI) | payer OTHER, MEDICAID, SELFPAY ==
[2023-03-29 10:49] LABS: Add Manual Diff / Slide Review NO; Basophils Absolute Auto 0 /uL (0-100); Basophils Percent Auto 0.1 % (0-2); Eosinophils Absolute Auto 0 /uL (0-450); Hematocrit 29.6 % (36-46); Hemoglobin 9.5 g/dL (12.0-16.0); Lymphocytes Absolute Auto 1300 /uL (1100-4500); Lymphocytes Percent Auto 7.1 % (25-40); Mean Corpuscular HGB Conc 32.2 % (30-36); Mean Corpuscular Hemoglobin 25.2 PG (26-34); Mean Corpuscular Volume 78.2 fL (80-100); Monocytes Absolute Auto 1300 /uL (0-900); Monocytes Percent Auto 6.8 % (3-14); Neutrophils Absolute Auto 16000 /uL (1500-7000); Platelet Count 327 X10^3/uL (150-400); Red Blood Cell Count 3.78 X10^6/uL (4.0-5.2); Red Cell Distribution Width 14.4 % (11.6-14.8); White Blood Cell Count 18.6 X10^3/uL (4.5-11.0)
[2023-03-29 11:43] LABS: TSH w/ Reflex to FT4 0.39 uIU/mL (0.47-4.68)
[2023-03-29 12:09] LABS: Free T4, Direct Thyroxine 1.18 ng/dL (0.78-2.19)
== END ==
PROVIDERS: PCP Family Medicine; Referring Provider Specialist; Visit Provider Specialist
DX: N93.9 Abnormal uterine and vaginal bleeding, unspecified (principal); D64.9 Anemia, unspecified; N92.0 Excessive and frequent menstruation with regular cycle
CPT/HCPCS: 36415; 84439; 84443; 85025

== ENCOUNTER 2023-07-06 11:48 | Day surgery (SDC) | payer OTHER, MEDICAID, SELFPAY ==
[2023-06-29 08:11] VITALS: BMI 35.3
[2023-07-06] VITALS (7 sets, daily range): BP systolic 101–112; BP diastolic 64–77; PULSE 75–110; RESP 12–20; TEMP 36.3–36.8; O2SAT 98–100; BMI 35.4
--- NOTE | 2023-07-06 | PATH_ITS ---
[facility] Accession Number: [id number] No. of containers..01 Tissue . 01 Material submitted: . uterus - UTERUS, LEFT FALLOPIAN TUBE . 01 Diagnosis: Uterus, Left Fallopian Tube, Laparoscopic Supracervical Hysterectomy With Left Salpingectomy (Weight 174 grams): Proliferative endometrium; negative for glandular hyperplasia, cytologic atypia, or malignancy. Myometrium with adenomyosis and with multiple intramural leiomyomas (1-9 mm in greatest dimension); negative for significant atypia. Uterine serosa with no significant atypia. Fallopian tube, complete cross-sections; negative for significant atypia. [facility] 07/20/2023 1623 Local . 01 Electronically signed: . Geri Banerjee MD, Pathologist NPI- [id number] . 01 Gross description: . The specimen is received in formalin labeled with the patient's name, , and uterus and left fallopian tube, and consists of a fragmented uterus (174 grams, 14.6 x 12.5 x 5.4 cm in aggregate), with a single fimbriated fallopian tube (2.7 x 0.5 cm), and no cervix or additional adnexa. . The serosa is ivan and smooth with no evidence of hemorrhage or adhesion identified. The endometrium is ivan to brown, velvety, and averages 0.1 cm thick. The myometrium is ivan and trabecular with multiple fairly well-defined white whorled areas ranging from 0.1 to 0.9 cm in greatest dimension. No additional lesions are identified. . The fallopian tube has ivan, smooth serosa with no cystic structures identified, and sectioning reveals an unremarkable stellate lumen. . Voice Teacher sections are submitted as follows: A1: Endometrium. A2: Serosa. A3-A4: White whorled areas. A5: Fallopian tube to include one-half of bisected fimbriae and cross-sections. ([id number]) /RICHARD 07/07/2023 1030 Local . 01 Pathologist provided ICD-10: N92.1, D25.9 . 01 CPT . 640831 Performed at: 01 [facility] [address] [place] [address], [place], [place] [id number] MD Julius Casiano MD Phone: [phone]
--- NOTE | 2023-07-06 12:10 | SUR.OPER ---
Lithotomy on padded OR bed. Klondike Pad Positioner under torso. Head on pillow, arms padded and tucked at sides. Legs secured in padded yellow fins stirrups.
[2023-07-06] MEDS: ACETAMINOPHEN 325 MG TABLET 975 MG PO (12:31)
[2023-07-06] MEDS: SCOPOLAMINE 1 PATCH TOP (12:31)
[2023-07-06] MEDS: LACTATED RINGERS 1,000 ML 21 ML IV (12:33)
--- NOTE | 2023-07-06 12:36 | PM.PREOP ---
Pre-operative Note Interval Note History & Physical reviewed/Exam performed by Physician: Yes Changes to H&P: No H&P completed within 30 days and has changed as indicated here:: 06/22/23
[2023-07-06] MEDS: CEFAZOLIN 2 GM/100 ML PREMIX 100 ML IV (12:50)
[2023-07-06] MEDS: BUPIVACAINE 0.5% (PF) 30 ML, EPINEPHrine 0.15 MG INJ (13:18)
[2023-07-06] MEDS: ROPIVACAINE 0.2% PF 2 MG/ML 10ML AMP 20 ML INJ (13:20)
--- NOTE | 2023-07-06 14:33 | P.OP_ITS ---
Operative Date/Time/Diagnoses Date of procedure: 07/06/23 Time of procedure: 14:33 Pre-op diagnosis: Menometrorrhagia Fibroid uterus Post-op diagnosis: same Procedure & Clinicians Procedure: Procedures Operation Date: 07/06/23 12:30 Actual Procedure Side Surgeon Laparoscopic Supracervical Hysterectomy with left salpingectomy Charis Laguerre MD Cautery of endometriosis of left adnexa Indications: 32 year old with menorrhagia and enlarged fibroid uterus. Surgeon: Charis Laguerre Dairy Scientist: Lucy Baker Anesthesia Type: General and Local Operative Notes Findings: 10 week size multifibroid uterus Endometriosis of the right cornua, and left ovarian fossa Normal liver and gallbladder Normal left tube Closure Type: primary Specimen(s): left tube, right tube and uterus Applied: catheter (removed at the end of the case) Estimated blood loss (mL): 25 Blood products transfused: none Procedure in detail: The patient was taken to the operating room where she was placed in the dorsal supine position. After adequate general endotracheal anesthesia was achieved, she was placed in the dorsal lithotomy position, and prepped and draped in the usual sterile fashion. A timeout was performed. A bivalve speculum was placed into the vagina and the anterior lip of the cervix grasped with a single-tooth tenaculum. The cervical os was sequentially dilated until the ZUMI uterine manipulator could pass easily into the endometrial cavity. The single-tooth tenaculum was removed from the anterior lip of the cervix, and the bivalve speculum was removed from the vagina. Attention was then turned to the abdomen where 6 mL of half percent Marcaine with epinephrine were injected in the umbilical fold. A 5 mm incision was made. The Verees needle was placed into the peritoneal cavity, and its placement confirmed by aspiration and drop test. The Verees needle was removed. A 5 mm trocar was placed without difficulty. 2 other incisions were made 4 cm lateral to the umbilicus after 5 mL of half percent Marcaine with epinephrine were injected. These were 5 mm incisions. Two 5 mm trocars were placed under direct visualization. The right tube was grasped with an atraumatic grasper. Using the power seal, the mesosalpinx was cauterized and cut all the way down to the cornua of the uterus. The cornua of the uterus was then grasped with an atraumatic grasper. The utero-ovarian ligam ents were cauterized and cut. The round ligament and broad ligament was cauterized and cut with the power seal. Hemostasis was achieved. The bladder flap was created using the power seal with cautery and cut [facility] across. The uterine arteries on the right side were extensively cauterized with the power seal. All of this was repeated on the left side. The remainder of the bladder flap was created using the power seal, and the bladder taken down off the lower uterine segment and cervix. Using the L[place]oop, the cervix was amputated from the uterus 2 cm above the uterosacral ligaments, after the ZUMI uterine manipulator was removed from the uterus. There was a small amount of bleeding noted from the posterior edge of the cervix, and this was cauterized for hemostasis. A sponge stick was placed into the vagina. 6 mL of half percent Marcaine with epinephrine were injected above the pubic symphysis. A 12 mm trocar was placed. An Endobag was placed through the suprapubic trocar and the uterus and tubes were placed into the Endobag. The trocar was removed. The edges of the bag were brought up through the skin. The uterus was grasped with a Leola. The James was placed into the endobag. The uterus was hand morcellated in approximately 8 pieces. The Endobag was removed from the peritoneal cavity. Using the spatula cautery, the endometriotic lesions in the left ovarian fossa were cauterized, with care to avoid the ureter. The pelvis was copiously irrigated with warm normal saline. No bleeding was noted. 20 cc of 0.2% ropivacaine were placed over the pedicles. The instruments were removed from the abdomen. The CO2 was allowed to escape. The suprapubic incision was closed on the fascia with 0 Vicryl. Two simple interrupted sutures with 3-0 Vicryl were placed in the subcutaneous layer on the suprapubic incision. All of the incisions were closed with 4-0 Biosyn in a subcuticular fashion. Steri- Strips and Allevyn dressings were placed. The moistened sponge stick was removed from the vagina. Sponge, lap, and instrument counts were correct x-2. The patient tolerated the procedure well, was taken to PACU in stable condition. Complications: none Post-operative Condition: stable Disposition: PACU Plan for aftercare: Home after recovery
[2023-07-06] MEDS: ONDANSETRON 4 MG/2 ML INJ IV (15:00)
[2023-07-06] MEDS: OXYCODONE IR 5 MG TABLET PO ×2 (15:00→15:29)
== END 2023-07-06 15:39 | disposition home or self-care (01) ==
LOC: OR 11:49 → AC 11:49
PROVIDERS: PCP Family Medicine; Referring Provider Obstetrics & Gynecology; Visit Provider Obstetrics & Gynecology
PROC: 0UT94ZL Resection of Uterus, Supracervical, Percutaneous Endoscopic Approach (ICD-10-PCS; CPT 58542; principal; 2023-07-06 12:30)
DX: N92.1 Excessive and frequent menstruation with irregular cycle (principal); N80.103 Endometriosis of bilateral ovaries, unspecified depth; D25.1 Intramural leiomyoma of uterus; N80.03 Adenomyosis of the uterus
CPT/HCPCS: 58542; J0171; J0690; J1100; J1885; J2250; J2405; J2704; J2795; J3010; J3490

== ENCOUNTER 2024-07-22 07:36 | Day surgery (SDC) | payer OTHER, MEDICAID, SELFPAY ==
[2024-07-16 10:48] VITALS: BMI 35.4
[2024-07-22 08:13] VITALS: BMI 35.4
[2024-07-22] MEDS: ACETAMINOPHEN 325 MG TABLET 975 MG PO (08:37)
[2024-07-22] MEDS: SCOPOLAMINE 1 PATCH TOP (08:38)
[2024-07-22] MEDS: LACTATED RINGERS 1,000 ML 42 ML IV (08:41)
[2024-07-22 08:43] VITALS: BP 108/76; PULSE 68; RESP 14; TEMP 36.6; O2SAT 100
--- NOTE | 2024-07-22 09:31 | P.HPOB_ITS ---
History of Present Illness History of Present Illness Reason for admission: vaginal bleeding (After laparoscopic supracervical hysterectomy) and pelvic pain Narrative: Nazia Morgan is a 33 year old female 3 para 3 who presents for a diagnostic laparoscopy with possible lysis of adhesions, and cautery and endocervical canal. This is being done due to pelvic pain and vaginal bleeding after supracervical hysterectomy. [facility] Medical History (Updated 07/17/24 @ 05:50 by Charis Laguerre MD) Hyperemesis gravidarum Migraine (~2018) Back pain (~11/2020) Adopted Anxiety (~2019) HPV (human papilloma virus) infection (~2018) Fracture of finger of left hand Surgical History S/P laparoscopic supracervical hysterectomy (07/06/23) Anesthesia [place] teeth extracted (~2010) History of salpingoophorectomy (~2002) History of appendectomy (~2002) Social History marital status: unmarried,living together number of children: 2 household members: spouse and children lives independently: Yes caregiver/support person: No housing: apartment pets and animals: Yes (2 Dogs - 1 emotional support dog, adopted from [facility] 1 puppy.) education level: high school occupational status: employed current occupational exposures/hazards: No special braulio needs: No seatbelt use: always do you feel safe at home: Yes Smoking Status: Never smoker second hand exposure: No alcohol intake: current substance use type: does not use during the past year weight has: decreased > 10 lbs well-balanced diet: about half the time daily servings fruits/ve-4 caffeine: Yes (1 12 oz coffee twice weekly. Guidelines reviewed. ) Type(s) of exercise: walking frequency: daily duration: 30-45 minutes/day Meds Home Medications and Allergies Home Medications Medication Instructions Recorded Confirmed Type super plus tampons #300 ea 03/14/23 08/17/23 Rx valacyclovir 500 mg tablet 500 mg PO DAILY 03/29/23 07/22/24 History cyclobenzaprine 5 mg tablet 5 mg PO BEDTIME 07/11/24 07/22/24 History naproxen 500 mg tablet 500 mg PO BID 07/11/24 07/22/24 History Allergies Allergy/AdvReac Type Severity Reaction Status Date / Time hydromorphone Allergy Mild Rash Verified 08/17/23 11:31 milk AdvReac Mild Powdered Verified 08/17/23 11:31 milk products: upset stomach, moderate diarrhea. Exam Vital Signs (past 8 hours): - 07/22/24 08:43 Temperature 97.8 F Pulse Rate 68 Respiratory Rate 14 Blood Pressure 108/76 Pulse Oximetry 100 Oxygen Delivery Method Room Air Oxygen Delivery Method Room Air Narrative Exam Narrative: Generally: A well-developed, well-nourished female, no acute distress Lungs: Clear to auscultation. Cardiovascular: Regular rate and rhythm Abdomen: Well-healed laparoscopy scars. No hepatosplenomegaly. No masses palpable Extremities: No edema Bimanual exam: Done in the office, deferred to the OR. Assessment & Plan Assessment & Plan narrative: Assessment: 33-year-old 3 para 3 with pelvic pain and vaginal bleeding after laparoscopic supracervical hysterectomy. Plan: Diagnostic laparoscopy with possible lysis of adhesions and cautery of the endocervical canal The risks, benefits, and alternatives to the procedure were explained to the patient. The risks including bleeding, infection, injury to the bowel, bladder, or ureters. She understands these risks and agrees to proceed. A full par Q was held and consent form was signed. Time-Based Coding :: [TOTAL MINUTES] spent with patient and on the chart (including review of chart, obtaining history, exam, reviewing outside data, placing orders, documenting exam and treatment plan, and counseling patient) on [DATE].
--- NOTE | 2024-07-22 09:34 | PM.PREOP ---
Pre-operative Note Interval Note History & Physical reviewed/Exam performed by Physician: Yes Changes to H&P: No H&P completed within 30 days and has changed as indicated here:: 07/22/24
--- NOTE | 2024-07-22 10:24 | SUR.OPER ---
Lithotomy on padded OR bed, head on pillow, arms TUCKED AND SECURED. Legs secured in padded yellow fins stirrups.
[2024-07-22] MEDS: BUPIVACAINE 0.5% (PF) 30 ML, EPINEPHrine 0.15 MG INJ (10:49)
[2024-07-22 11:13] VITALS: BP 117/61; PULSE 87; RESP 16; TEMP 36.2; O2SAT 98
--- NOTE | 2024-07-22 11:14 | PM.GYNOP.1 ---
Operative Date/Time/Diagnoses Date of procedure: 07/22/24 Time of procedure: 11:14 Pre-op diagnosis: Pelvic pain Dyspareunia Vaginal bleeding after [facility] Post-op diagnosis: same Procedure & Clinicians Procedure: Procedures Operation Date: 07/22/24 09:15 Actual Procedure Side Surgeon p Diagnostic Laparoscopy with Lysis of Adhesions, FULGERATION OF ENDOMETRIOSIS, CAUTERY OF ENDOCERVICAL CANAL Left Charis Laguerre MD Indications: 33-year-old with pelvic pain Dyspareunia Vaginal bleeding Status post laparoscopic supracervical hysterectomy Surgeon: Charis Laguerre Anesthesia Type: General and Local Operative Notes Findings: Uterus surgically absent Right tube and ovary and left tube surgically absent Normal liver and gallbladder Adhesions between the bowel and cervix 3-4mm endometrial implant nearl left uterosacral ligament Closure Type: primary Specimen(s): none Estimated blood loss (mL): 5 Blood products transfused: none Procedure in detail: After informed consent was obtained, the patient was taken to the operating room where she was placed in the dorsal supine position. After adequate general endotracheal anesthesia was achieved, she was placed in the dorsal lithotomy position, and prepped and draped in the usual sterile fashion. A time-out was performed. A moistened sponge stick was placed into the vagina. Attention was then turned to the abdomen where 5 cc of 0.25% Marcaine with epinephrine were injected in the umbilical fold. A 5 mm incision was made. Veress needle was placed into the peritoneal cavity, and its placement confirmed by aspiration and drop test. The abdominal cavity was insufflated with 3.4 L of CO2. Veress needle was removed, and a 5 mm trocar was placed without difficulty. Another incision was made through the previous incision 4 cm left lateral to the umbilicus after 6 cc of 0.5% Marcaine with epinephrine were injected. A second 5 mm trocar was placed under direct visualization. A probe was used to identify the pelvis. There was a 3-4 mm endometriosis lesion near the left uterosacral ligament. The bowel was adhesed to the cervix. Using atraumatic graspers, the adhesions between the bowel and the cervix were taken down bluntly using the endo Saba and sharply using the endo Saba. Once this was freed, the spatula cautery this used fulgurate the endometriosis lesion. The pelvis was irrigated. There was no bleeding noted. The instruments were removed from the abdomen. The CO2 was allowed to escape. The incisions were closed with 4-0 Monocryl in a subcuticular fashion. Steri-Strips and Allevyn dressings were placed. Attention was then turned to the vagina with a moist sponge stick was removed from the vagina. A single-tooth tenaculum was placed on the anterior lip of the cervix. Using the cautery the endocervical canal was extensively cauterized after the length of the cervix was determined to be 3 cm. Sponge, lap, and instrument counts were correct x2. The patient tolerated the procedure well, and was taken to PACU in stable condition. Complications: none Post-operative Condition: stable Disposition: PACU Plan for aftercare: Home after recovery
[2024-07-22 11:19] VITALS: BP 115/61; PULSE 76; RESP 17; O2SAT 98
[2024-07-22 11:34] VITALS: BP 112/57; PULSE 79; RESP 16; TEMP 36.2; O2SAT 100
[2024-07-22 11:39] VITALS: BP 100/60; PULSE 88; RESP 16; TEMP 36.2; O2SAT 99
== END 2024-07-22 12:13 | disposition home or self-care (01) ==
PROVIDERS: PCP Family Medicine; Referring Provider Obstetrics & Gynecology; Visit Provider Obstetrics & Gynecology
PROC: (CPT 58662; principal; 2024-07-22 09:15)
DX: R10.2 Pelvic and perineal pain (principal); N93.9 Abnormal uterine and vaginal bleeding, unspecified; N94.10 Unspecified dyspareunia; N73.6 Female pelvic peritoneal adhesions (postinfective); N80.3C2 Endometriosis of the left uterosacral ligament, unspecified depth
CPT/HCPCS: 58662; 57510; J0171; J0330; J1100; J1885; J2250; J2405; J2704; J3010; J3490

== ENCOUNTER → 2024-11-06 11:45 | Outpatient (CLI) | payer OTHER, SELFPAY ==
[2024-11-06 13:02] LABS: Add Manual Diff / Slide Review NO; Basophils Absolute Auto 0 /uL (0-100); Basophils Percent Auto 0.4 % (0-2); Eosinophils Absolute Auto 200 /uL (0-450); Eosinophils Percent Auto 2.8 % (2-4); Hematocrit 37.9 % (36-46); Lymphocytes Absolute Auto 2600 /uL (1100-4500); Lymphocytes Percent Auto 33.2 % (25-40); Mean Corpuscular HGB Conc 34.4 % (30-36); Mean Corpuscular Hemoglobin 29.8 PG (26-34); Mean Corpuscular Volume 86.6 fL (80-100); Monocytes Absolute Auto 600 /uL (0-900); Monocytes Percent Auto 7.2 % (3-14); Neutrophils Absolute Auto 4400 /uL (1500-7000); Neutrophils Percent Auto 56.4 % (50-75); Platelet Count 294 X10^3/uL (150-400); Red Blood Cell Count 4.37 X10^6/uL (4.0-5.2); White Blood Cell Count 7.8 X10^3/uL (4.5-11.0)
[2024-11-06 13:11] LABS: Hemoglobin A1C% w Est Avg Glu 4.9 % (4.0-6.0)
[2024-11-06 13:22] LABS: Alanine Aminotransferase 33 IU/L (<35); Albumin 4.7 g/dL (3.5-5.0); Albumin Globulin Ratio 1.5 (1.0-2.8); Alkaline Phosphatase 48 U/L (38-126); Aspartate Aminotransferase 34 IU/L (14-36); BUN Creatinine Ratio 21.5 (6-22); Bilirubin Total 0.6 mg/dL (0.2-1.3); Blood Urea Nitrogen 14 mg/dL (7-17); Calcium 9.7 mg/dL (8.4-10.2); Carbon Dioxide 26 mmol/L (22-32); Chloride 103 mmol/L (98-107); Estimated Glomerular Filt Rate > 60 mL/min (>60); Globulin 3.2 g/dL (1.7-4.1); Glucose 86 mg/dL (70-100); HEMOLYSIS < 15 (0-50); Potassium 4.5 mmol/L (3.4-5.1); Sodium 138 mmol/L (137-145); Total Protein 7.9 g/dL (6.3-8.2)
[2024-11-06 13:56] LABS: TSH w/ Reflex to FT4 0.78 uIU/mL (0.47-4.68)
[2024-11-06 16:58] LABS: Luteinizing Hormone 5.62 mIU/mL
[2024-11-06 17:13] LABS: Estradiol, Total 121.3 pg/mL
== END ==
PROVIDERS: PCP Family Medicine; Referring Provider Family Medicine; Visit Provider Family Medicine
DX: N95.1 Menopausal and female climacteric states (principal); Z90.710 Acquired absence of both cervix and uterus
CPT/HCPCS: 36415; 80053; 82397; 82670; 83001; 83002; 83036; 84443; 85025